=== PATIENT | male | born 1950 | race Caucasian/White ===

== ENCOUNTER 2016-10-24 01:25 | Emergency (ER) | payer OTHER ==
[~2016-10-24] VITALS: Ht 177.8 cm; Wt 104.3 kg
[2016-10-24 01:32] VITALS: BP 159/98
--- NOTE | 2016-10-24 02:24 | PHYS DOC ---
Past Medical History Past Medical History: Hypertension Past Surgical History: Appendectomy Alcohol Use: Occasionally Drug Use: None Adult General Chief Complaint Chief Complaint: KNEE SWELLING HPI HPI Patient is a 66 year old male who presents with atraumatic right lower extremity pain that started in his right distal calf and has now moved to behind his right knee. He has some associated swelling that is on the right leg. Pain is mild, achy, worse with range of motion. He denies injury, discoloration, numbness, tingling, weakness, fever or chills, rash. He denies chest pain, dyspnea, orthopnea, exertional symptoms, hemoptysis, cough. Review of Systems Review of Systems Constitutional: Denies fever or chills [] Eyes: Denies change in visual acuity, redness, or eye pain [] HENT: Denies nasal congestion or sore throat [] Respiratory: Denies cough or shortness of breath [] Cardiovascular: No additional information not addressed in HPI [] GI: Denies abdominal pain, nausea, vomiting, bloody stools or diarrhea [] : Denies dysuria or hematuria [] Musculoskeletal: Denies back pain [] Integument: Denies rash or skin lesions [] Neurologic: Denies headache, focal weakness or sensory changes [] Endocrine: Denies polyuria or polydipsia [] Physical Exam Physical Exam Constitutional: Well developed, well nourished, no acute distress, non-toxic appearance. [] HENT: Normocephalic, atraumatic, bilateral external ears normal, oropharynx moist, nose normal. [] Eyes: PERRLA, EOMI, conjunctiva normal, no discharge. [] Neck: Normal range of motion, supple. [] Cardiovascular:Heart rate regular rhythm [] Lungs & Thorax: Bilateral breath sounds clear to auscultation [] Abdomen: Bowel sounds normal, soft, no tenderness. [] Skin: Warm, dry, no erythema, no rash. [] Back: Normal range of motion. [] Extremities: RLE with no obvious deformity or discoloration; Has minimal tenderness to medial calf; no palpable cord; has right 1+ edema; Able to flex/ex /IR/ER hip, knee full rom, ankle df/pf, toes df/pf; SILT pitts/sa/sp/dp/tib distributions; dp and pt pulses equal bilaterally Neurologic: Alert and oriented X 3, normal motor function, normal sensory function, no focal deficits noted. [] Psychologic: Affect normal, judgement normal, mood normal. [] Current Patient Data Vital Signs Vital Signs Date Time Temp Pulse Resp B/P (MAP) Pulse Ox O2 Delivery O2 Flow Rate FiO2 10/24/16 01:32 98.1 86 20 159/98 (118) 98 Room Air 98.1 Course & Med Decision Making Course & Med Decision Making Pertinent Labs and Imaging studies reviewed. (See chart for details) Ultrasound does not show evidence of DVT. Encouraged supportive care and follow- up with primary care. Return precautions given. He understands and agrees plan. Dragon Disclaimer Dragon Disclaimer This electronic medical record was generated, in whole or in part, using a voice recognition dictation system. Departure Departure Impression: Primary Impression: Right leg pain Disposition: 01 HOME, SELF-CARE Condition: STABLE Referrals: NO PCP (PCP) Patient Instructions: Peripheral Edema Additional Instructions: Take Tylenol or ibuprofen as needed for pain. Follow-up with a primary care doctor within one week. Return for any concerns. Dandy MATOS MD Oct 24, 2016 02:24
--- NOTE | 2016-10-24 02:49 | RAD ---
EXAM: Right lower extremity venous Doppler. HISTORY: Right lower extremity pain/swelling. COMPARISON: None. FINDINGS: Grayscale and Doppler analysis of the right lower extremity deep venous system was performed with graded compression and augmentation. The common femoral, greater saphenous, superficial femoral, popliteal and calf veins were assessed. There is no evidence of deep venous thrombosis. IMPRESSION: 1. No evidence of deep venous thrombosis. Electronically signed by: Juancarlos Ferris MD (10/24/2016 2:45 AM)
== END 2016-10-24 02:40 | disposition home or self-care (01) ==
LOC: ER 01:25
DX: M79.604 Pain in right leg (principal); R22.41 Localized swelling, mass and lump, right lower limb; I10 Essential (primary) hypertension
CPT/HCPCS: 93971; 99284-25